=== PATIENT | female | born 1960 ===

== ENCOUNTER 2019-01-22 08:20 | Emergency (ER) | payer OTHER ==
[~2019-01-22] VITALS: Ht 170.2 cm; Wt 93.0 kg
[2019-01-22] MEDS ORDERED: FORTAMET1000 MG (08:34)
[2019-01-22] MEDS ORDERED: LIPITOR PO (08:34)
[2019-01-22] MEDS ORDERED: TRULICITY0.75 MG/0. (08:35)
[2019-01-22] MEDS ORDERED: NAPR500T14 (08:39)
[2019-01-22] MEDS ORDERED: NORFLEX100MG (08:39)
[2019-01-22] MEDS ORDERED: ULTRACET PO (09:52)
== END 2019-01-22 10:08 | disposition home or self-care (01) ==
LOC: ER 08:20
DX: S40.022A Contusion of left upper arm, initial encounter (principal); S80.02XA Contusion of left knee, initial encounter; W18.39XA Other fall on same level, initial encounter; Y93.89 Activity, other specified; Y92.89 Other specified places as the place of occurrence of the external cause; Y99.8 Other external cause status

== ENCOUNTER 2019-02-03 13:10 | Emergency (ER) | payer OTHER ==
[~2019-02-03] VITALS: Ht 170.2 cm; Wt 93.0 kg
[~2019-02-03 13:10] MED LIST: FORTAMET1000 MG; LIPITOR PO; NAPR500T14; NORFLEX100MG; TRULICITY0.75 MG/0.; ULTRACET PO
== END 2019-02-03 18:40 | disposition home or self-care (01) ==
LOC: ER 13:10
DX: S82.122A Displaced fracture of lateral condyle of left tibia, initial encounter for closed fracture (principal); X58.XXXA Exposure to other specified factors, initial encounter; Y93.89 Activity, other specified; Y92.89 Other specified places as the place of occurrence of the external cause; Y99.8 Other external cause status